=== PATIENT | female | born 1955 | race Caucasian/White ===

== ENCOUNTER 2023-07-11 12:53 | Outpatient (CLI) | payer MEDICARE ==
[~2023-07-11 12:53] MED LIST: Iopamidol 300 61% 100 ML VIAL FS ONE; Magnevist 469MG/ML 20 ML VIAL ONE
== END 2023-07-11 12:54 | disposition home or self-care (01) ==
LOC: CSHCT 12:53
PROVIDERS: ATTEND Family Medicine
DX: E27.8 Other specified disorders of adrenal gland (principal); N28.9 Disorder of kidney and ureter, unspecified; N28.89 Other specified disorders of kidney and ureter; K86.2 Cyst of pancreas
CPT/HCPCS: 74178; 74183; 82565